=== PATIENT | female | born 1950 | race Caucasian/White ===

== ENCOUNTER → 2016-09-02 | Outpatient (CLI) | payer OTHER | END | disposition home or self-care (01) | LOC: GMAB 10:10 | PROVIDERS: ATTEND Family Medicine | DX: E03.9 Hypothyroidism, unspecified (principal) ==

== ENCOUNTER → 2016-12-10 | Outpatient (CLI) | payer MEDICARE | LOC: GMAB 15:01 | PROVIDERS: ATTEND Family Medicine | DX: R20.2 Paresthesia of skin (principal) ==

== ENCOUNTER → 2016-12-16 | Outpatient (CLI) | payer MEDICARE ==
--- NOTE | 2016-12-16 11:02 | MRI ---
EXAM DESCRIPTION: Cervical Spine CLINICAL HISTORY: RADICULOPATHY CERVICAL REGION COMPARISON: None TECHNIQUE: MRI of the cervical spine is performed according to our usual protocol. FINDINGS: MRI of the cervical spine demonstrates advanced marked multilevel degenerative disc disease as well as facet arthropathy with either acquired or congenital fusion of the C3 and C4 vertebral bodies. Marked hypertrophic changes at the C1 articulation with some secondary erosion of the base of the odontoid from the degenerative arthropathy is present. The foramen magnum and craniocervical junction remains adequate. No bony destructive or metastatic changes are seen. Paraspinous and prevertebral structures are within the limits of normal. No intradural or intramedullary abnormalities noted. C2-3: Disc desiccation with broad-based annular bulge and bilateral foraminal narrowing with marked buckling of the ligamentum flavum posteriorly with borderline AP diameter canal stenosis at and just below the level of the disc space. C3-4: Views disc space anteriorly with no significant posterior bulging or significant spinal canal compromise with adequate neural foramina. C4-5: Disc degenerative narrowing with annular bulge and marked foraminal narrowing and moderate AP diameter canal stenosis with ligamentum flavum buckling and thickening posteriorly C5-6: Disc degeneration with broad-based annular bulge and severe bilateral foraminal narrowing from facet disease with moderate AP diameter canal stenosis. C6-7: Disc degeneration and narrowing with adequate thecal sac with mild annular bulge and marked of foraminal narrowing from facet disease. C7-T1: Advanced disc degeneration with annular bulge and bilateral foraminal narrowing right worse than left with moderate circumferential spinal stenosis. Multifactoral moderate circumferential stenosis with disc degenerative changes at T1 to and similar changes at T2-3 with a more normal canal at T3-4 and T4-5 with modest annular bulge is noted. IMPRESSION: 1. Markedly abnormal cervical spine with diffuse disc degeneration and facet arthropathy with multilevel spinal canal stenosis and diffuse foraminal narrowing throughout the cervical spine from C2-3 through T2-3 with relative sparing of the C3-4 C6-7 levels. 2. Marked hypertrophic degenerative changes at the C1-2 articulation anteriorly with some erosion of the base of the odontoid without distinct fracture the possibility of significant weakening of the odontoid should be considered. A CT examination of the upper cervical spine to assess the integrity of the odontoid a be of value. Electronically signed by: Manuel Davison MD 12/16/2016 11:00 AM CDT
--- NOTE | 2016-12-16 13:50 | MRI ---
EXAM DESCRIPTION: Lumbar Spine w/o Contrast CLINICAL HISTORY: RADICULOPATHY LUMBAR REGION COMPARISON: None Available. TECHNIQUE: MRI of the lumbar spine is performed according to our usual protocol with axial and sagittal multi sequence imaging. FINDINGS: Advanced degenerative disc disease at L4-5 and L5-S1 with grade 1 degenerative spondylolisthesis at L4-5 with significant stenosis at this level and at L3-4 is present. Marrow signal is heterogeneous with a fat-suppressed of normal small hemangioma in the superior L4 vertebral body noted and benign in appearance. The conus is positioned at the mid L1 level with no intradural or intramedullary abnormalities. The retroperitoneal and paraspinous structures appear normal. Moderate broad-based bulging annulus at T12-L1 with mild facet arthropathy is present with adequate spinal canal. L1-2: Disc desiccation with mild annular prominence and adequate neural foramina. L2-3: Disc desiccation with adequate canal and mild annular prominence and facet arthropathy with adequate neural foramina. L3-4: Disc desiccation with multifactoral moderate central stenosis with moderate bulging annulus as well as moderately severe facet arthropathy and ligamentum flavum hypertrophy. Mild narrowing of each inferior L3 neural foramen. Very slight component of left parasagittal disc protrusion above the disc space to the left of midline is present. The earliest beginnings of a small 2 x 3 mm synovial cyst to the left of midline is present. L4-5: Severe disc degeneration and endplate irregularity with disc narrowing and severe facet hypertrophy and ligamentum flavum hypertrophy with severe central canal stenosis marked L4 foraminal narrowing. L5-S1: Severe disc degeneration and narrowing with annular bulge and advanced facet arthropathy with thecal sac lower limits of normal. Mild right and moderately severe left L5 foraminal stenosis with ligamentum flavum hypertrophy and facet arthropathy IMPRESSION: 1. Severe L4-5 central stenosis with grade 1 spondylolisthesis and severe facet arthropathy and ligamentum flavum hypertrophy with marked narrowing of both L4 neural foramina. 2. Moderate multifactorial central stenosis of the canal at L3-4 with annular bulge, small left-sided extruded disc fragment extending cephalad on the left and advanced facet arthropathy. Milder narrowing of each L3 neural foramina. Earliest beginnings of a small synovial cyst of the left of midline. 3. Advanced disc degeneration with adequate central canal L5-S1 with moderate left foraminal narrowing from facet disease and ligamentum flavum hypertrophy. Electronically signed by: Manuel Davison MD 12/16/2016 1:49 PM CDT
== END | disposition home or self-care (01) ==
LOC: MRI 07:37
PROVIDERS: ATTEND Family Medicine
DX: M54.12 Radiculopathy, cervical region (principal); M54.16 Radiculopathy, lumbar region

== ENCOUNTER → 2016-12-24 | Outpatient (CLI) | payer MEDICARE ==
--- NOTE | 2016-12-25 15:53 | CT ---
EXAM DESCRIPTION: Cervical Spine CLINICAL HISTORY: RADICULOPATHY, CERVICAL REGION COMPARISON: MR December 16, 2016 TECHNIQUE: Axial noncontast CT of the cervical spine with coronal and sagittal reformats. This exam was performed according to our departmental dose-optimization program, which includes automated exposure control, adjustment of the mA and/or kV according to patient size and/or use of iterative reconstruction technique. FINDINGS: Cervical vertebral bodies show normal height without compression deformity. Interbody fusion and facet arthrodesis at C3-C4 is noted. Straightening of the normal cervical lordosis is seen. Craniocervical junction is maintained. Calcifications of the vertebral arteries are noted. There are moderate carotid bulb calcifications. C1-2 and craniocervical junction Severe degenerative changes between the anterior arch of C1 and the odontoid are noted. Multiple osseous bodies are seen anterior to the C1-2 level. Mild left and moderate right degenerative changes between C1 and the occipital condyles is seen. There are sclerotic changes of the odontoid with posterior wall irregularity. No spinal canal stenosis. C2-3 Severe bilateral facet hypertrophic and degenerative changes are seen contributing to moderate to severe foraminal encroachment and mild spinal canal stenosis. C3-4 Fusion at this level as described above without significant spinal canal stenosis or foraminal encroachment. C4-5 Moderate diffuse disc space narrowing with disc osteophytic ridging, severe right, and moderate left foraminal encroachment resulting in mild spinal canal stenosis with severe right and moderate left foraminal encroachment. C5-6 Moderate diffuse disc space narrowing is seen with severe bilateral facet hypertrophic and degenerative changes. There is at least mild spinal canal stenosis and moderate to severe bilateral foraminal encroachment. C6-7 Severe diffuse disc space narrowing is seen with moderate left and severe right facet hypertrophic and degenerative changes. Moderate left and severe right foraminal encroachment is seen. C7-T1 Severe disc space narrowing with trace anterolisthesis. Moderate bilateral facet hypertrophic and degenerative changes are seen with severe right and moderate left foraminal encroachment. T1-2: Severe disc space narrowing with moderate to severe bilateral facet arthropathy contributes to bilateral foraminal encroachment. IMPRESSION: Severe disc degenerative changes and facet arthropathy throughout the cervical spine is seen. There is at least mild spinal canal stenosis from C4 through C6 with multilevel moderate to severe foraminal encroachment. Significant degenerative changes at the C1-2 level and involving the occipital condyles is noted. Electronically signed by: Jimmie Porter MD 12/25/2016 3:52 PM CDT
== END | disposition home or self-care (01) ==
LOC: CT 11:38
PROVIDERS: ATTEND Family Medicine
DX: M54.12 Radiculopathy, cervical region (principal)

== ENCOUNTER → 2017-09-16 | Outpatient (CLI) | payer MEDICARE | LOC: GMAB 11:11 | PROVIDERS: ATTEND Family Medicine | DX: E53.8 Deficiency of other specified B group vitamins (principal); E03.9 Hypothyroidism, unspecified ==

== ENCOUNTER → 2017-09-17 | Outpatient (CLI) | payer MEDICARE ==
--- NOTE | 2017-09-17 14:53 | US ---
THYROID ULTRASOUND CLINICAL INFORMATION: Nontoxic single thyroid nodule. TECHNIQUE: Routine transcutaneous scannin-D and Doppler modes. COMPARISON: Baseline study at this facility. FINDINGS: Thyroid size: Right 3.3 x 1.1 x 1.0 cm. Left 3.9 x 1.2 x 1.1 cm. Isthmus 1.2 mm thickness. Texture: Inhomogeneous. Estimated total number of nodules >/=1 cm: 0 Number of spongiform nodules >/=2 cm not described below (TR1): 0 Number of mixed cystic and solid nodules >/=1.5 cm not described below (TR2): 0 Bilateral nodules are 4.6 mm, 7.1 mm, and 6.0 mm in greatest diameter. These nodules have smooth margins, spongiform echotexture, no echogenic foci, wider than tall orientation. Because of their size and spongiform consistency, they are ACR TI RADS risk category 2 and no ultrasound follow-up is recommended. ACR TI-RADS risk category: TR2 (2 points) ACR TI-RADS recommendation: No further follow-up Scanning the soft tissues around the thyroid gland: No distinct solid mass or cyst. No large calcifications or parenchymal edema. No overlying skin changes. No abnormal vascularity. IMPRESSION: 1. Bilateral spongiform nodules less than 1 cm in diameter. ACR TI RADS risk category TR 2. No further ultrasound follow-up recommended. 2. Soft tissue around the thyroid gland is unremarkable. ACR TI-RADS recommendations: TR5 (>/=7 points) - FNA if >/=1 cm, follow-up if 0.5 - 0.9 cm every year for 5 years TR4 (4-6 points) - FNA if >/=1.5 cm, follow-up if 1 - 1.4 cm in 1, 2, 3 and 5 years TR3 (3 points) - FNA if >/=2.5 cm, follow -up if 1.5 - 2.4 cm in 1, 3 and 5 years TR2 (2 points) and TR1 (0 points) - No FNA or follow-up * ACR TI-RADS recommends that no more than two nodules with the highest ACR TI-RADS total point should be biopsied and no more than four nodules should be followed. Electronically signed by: Jcarlos Marks MD 09/17/2017 2:52 PM CDT
== END ==
LOC: US 13:21
PROVIDERS: ATTEND Family Medicine
DX: E04.1 Nontoxic single thyroid nodule (principal)

== ENCOUNTER → 2018-11-01 | Outpatient (CLI) | payer MEDICARE | LOC: GMAE 14:25 | PROVIDERS: ATTEND Family Medicine | DX: E03.9 Hypothyroidism, unspecified (principal); I10 Essential (primary) hypertension; E78.2 Mixed hyperlipidemia ==

== ENCOUNTER → 2019-03-14 | Outpatient (CLI) | payer MEDICARE ==
--- NOTE | 2019-03-14 12:45 | RAD ---
EXAM DESCRIPTION: Pelvis CLINICAL HISTORY: PAIN IN RIGHT HIP COMPARISON: None. TECHNIQUE: AP pelvis FINDINGS: Degenerative changes are observed in the lower lumbar spine. Mild right hip acetabular osteophyte formation is observed. No fracture is detected. IMPRESSION: Mild degenerative changes are observed in the right hip. Electronically signed by: Perez Castro MD 03/14/2019 12:44 PM [facility]
--- NOTE | 2019-03-14 12:47 | RAD ---
EXAM DESCRIPTION: Knee,Right Complete CLINICAL HISTORY: PAIN IN RIGHT KNEE COMPARISON: None. TECHNIQUE: 4 views right FINDINGS: A joint effusion is evident. Mild degenerative changes are observed in the patellofemoral articulation. No evidence of a fracture is seen. Mild loss of lateral joint space is also noted. IMPRESSION: 1. Degenerative changes are observed in the lateral joint compartment and patellofemoral joint. 2. A joint effusion is evident. Electronically signed by: Perez Castro MD 03/14/2019 12:45 PM [facility]
== END ==
LOC: RAD 10:08
PROVIDERS: ATTEND Orthopaedic Surgery
DX: M16.11 Unilateral primary osteoarthritis, right hip (principal); M17.11 Unilateral primary osteoarthritis, right knee; M25.561 Pain in right knee

== ENCOUNTER → 2019-04-25 | Outpatient (CLI) | payer MEDICARE ==
--- NOTE | 2019-04-26 07:24 | RAD ---
EXAM DESCRIPTION: Shoulder,Left 2 or More Views CLINICAL HISTORY: 68 years Female, PAIN IN LEFT SHOULDER COMPARISON: None. Findings: Four views/radiographs Location: Left shoulder No acute fracture or dislocation. Mild acromioclavicular osteoarthritis. Soft tissues are unremarkable. Subacromial space is maintained. Visualized chest is clear. Glenohumeral relationship maintained. Atherosclerotic plaque in the thoracic aorta. IMPRESSION: No evidence of acute process in the left shoulder. Electronically signed by: Carlo Beckett MD 04/26/2019 7:22 AM [facility]
== END ==
LOC: RAD 11:23
PROVIDERS: ATTEND Family Medicine
DX: M25.512 Pain in left shoulder (principal)

== ENCOUNTER → 2019-11-03 | Outpatient (CLI) | payer MEDICARE, OTHER | LOC: GMAE 10:30 | PROVIDERS: ATTEND Family Medicine | DX: E03.9 Hypothyroidism, unspecified (principal); E78.2 Mixed hyperlipidemia; I10 Essential (primary) hypertension ==

== ENCOUNTER 2020-03-06 11:49 | Outpatient (CLI) | payer OTHER | END 2020-03-07 12:47 | disposition home or self-care (01) | LOC: INFRM 11:49 | PROVIDERS: ATTEND Family Medicine | DX: U07.1 COVID-19 (principal); Z23 Encounter for immunization ==